=== PATIENT | female | born 1960 | race Caucasian/White ===

== ENCOUNTER 2020-02-10 10:03 | Day surgery (SDC) | payer MEDICARE, OTHER ==
[~2020-02-10] VITALS: Ht 160 cm; Wt 136.4 kg
[2020-02-10] MEDS ORDERED: DIPHENHYDRAMINE 50 MG/ML, 1ML IVPush ONE (11:00)
[2020-02-10] MEDS ORDERED: INSU100C SQ-INSULIN (11:02)
[2020-02-10] MEDS ORDERED: CHOL10003 PO (11:02)
[2020-02-10] MEDS ORDERED: CETI10CA PO (11:02)
[2020-02-10] MEDS ORDERED: FLUT12HF3 IH (11:02)
[2020-02-10] MEDS ORDERED: INSU100V8 SQ (11:02)
[2020-02-10] MEDS ORDERED: ROSU5TAB PO (11:02)
[2020-02-10] MEDS ORDERED: POTA10CA PO (11:02)
[2020-02-10] MEDS ORDERED: GLIM1TAB PO (11:02)
[2020-02-10] MEDS ORDERED: MAGN100T6 PO (11:02)
[2020-02-10] MEDS ORDERED: MONT10TA11 PO (11:02)
[2020-02-10] MEDS ORDERED: METF500T17 PO (11:02)
[2020-02-10] MEDS ORDERED: ASCO500C2 PO (11:02)
[2020-02-10] MEDS ORDERED: TIOT18CA INH (11:02)
[2020-02-10] MEDS ORDERED: MELA3TAB31 PO (11:02)
[2020-02-10] MEDS ORDERED: VALS1TAB19 PO (11:02)
[2020-02-10] MEDS ORDERED: CARV3.122 PO (11:02)
[2020-02-10] MEDS ORDERED: OMEG1CAP23 PO (11:02)
[2020-02-10] MEDS ORDERED: LEVO50TA5 PO (11:02)
[2020-02-10] MEDS ORDERED: MULT-53 PO (11:02)
[2020-02-10] MEDS ORDERED: TURM1POW2 PO (11:02)
[2020-02-10] MEDS ORDERED: IPRA3AMP30 INH (11:02)
[2020-02-10] MEDS ORDERED: DULA1.5P INJ (11:02)
[2020-02-10] MEDS ORDERED: FLUT9.9S NAS (11:02)
[2020-02-10] MEDS ORDERED: EPIN0.3A3 INJ (11:02)
[2020-02-10] MEDS ORDERED: FURO40TA6 PO (11:02)
[2020-02-10] MEDS ORDERED: ONDA4TAB7 PO (11:02)
[2020-02-10 11:17] VITALS: BP 115/75
[2020-02-10] MEDS ORDERED: methylPREDNISolone SOD SUCC 125 MG/2 ML ONE (11:22)
[2020-02-10] MEDS ORDERED: DIPHENHYDRAMINE 50 MG/ML, 1ML ONE (11:22)
[2020-02-10 11:37] LABS: BASOPHILS # (AUTO) 0.02 x10^3/uL (0-0.1); BASOPHILS % (AUTO) 0 % (0-1); EOSINOPHILS # (AUTO) 0.19 x10^3/uL (0-0.4); EOSINOPHILS % (AUTO) 2 % (1-7); LYMPHOCYTES % (AUTO) 21 % (22-44); MD NO; MEAN CORPUSCULAR HEMOGLOBIN 29.8 pg (27.0-34.8); MEAN CORPUSCULAR HGB CONC 32.1 g/dL (32.4-35.8); MEAN PLATELET VOLUME 9.4 fL (7.4-10.4); MONOCYTES # (AUTO) 0.47 x10^3/uL (0.2-0.8); MONOCYTES % (AUTO) 5 % (2-9); NEUTROPHILS # (AUTO) 6.34 x10^3/uL (1.8-6.8); NEUTROPHILS % (AUTO) 71 % (42-75); PLATELET COUNT 170 x10^3/uL (130-400); RED BLOOD COUNT 4.61 x10^6/uL (3.82-5.3); RED CELL DISTRIBUTION WIDTH 14.3 % (9.6-15.2)
[2020-02-10 11:40] LABS: INTERNATIONAL NORMALIZED RATIO 1.07 (0.93-1.1)
[2020-02-10 11:43] LABS: ANION GAP 5 mmol/L (5-15); CALCIUM 9.3 mg/dL (8.5-10.1); CHLORIDE 103 mmol/L (98-107); CREATININE 0.61 mg/dL (0.55-1.02)
[2020-02-10] MEDS ORDERED: MIDAZOLAM 1 MG/ML, 2ML ONE (12:40)
[2020-02-10] MEDS ORDERED: VERAPAMIL 2.5 MG/ML, 2ML ONE (12:40)
[2020-02-10] MEDS ORDERED: LIDOCAINE-MPF 1%, 5ML ONE (12:40)
[2020-02-10] MEDS ORDERED: FENTANYL PF 100 MCG/2ML ONE (12:40)
[2020-02-10] MEDS ORDERED: HEPARIN 1,000 UNITS/ML, 10ML ONE (12:40)
== END 2020-02-10 14:58 | disposition home or self-care (01) ==
LOC: CACL 10:03
PROVIDERS: ATTEND Internal Medicine Cardiovascular Disease
DX: R06.02 Shortness of breath (principal); I10 Essential (primary) hypertension; E11.9 Type 2 diabetes mellitus without complications; E78.5 Hyperlipidemia, unspecified; J45.909 Unspecified asthma, uncomplicated; G47.36 Sleep related hypoventilation in conditions classified elsewhere; E66.01 Morbid (severe) obesity due to excess calories; Z79.4 Long term (current) use of insulin; Z79.890 Hormone replacement therapy; Z79.899 Other long term (current) drug therapy; Z88.0 Allergy status to penicillin; Z88.7 Allergy status to serum and vaccine; Z91.013 Allergy to seafood; Z99.81 Dependence on supplemental oxygen
CPT/HCPCS: 36415; 80048; 83880; 85025; 85610; 93451; 99156; 99157; C1894; J1200; J2250; J3010; J1644; J2930